=== PATIENT | female | born 1985 | race Caucasian/White ===

== ENCOUNTER → 2018-03-12 13:23 | Outpatient (CLI) | payer BC, SELFPAY ==
--- NOTE | 2018-03-12 13:27 | MM_ITS ---
MM Dig mamm BI DX w/CAD, US breast LT complete INDICATION: Palpable abnormality in the upper outer and upper inner aspect of the left breast ORDERING PHYSICIAN: Laura Shelley MD PATIENT AGE: 32 years COMPARISON: None TECHNIQUE: Standard images performed along spot compression views of the left breast and left breast ultrasound FINDINGS: There is dense fibroglandular tissue which decreases the sensitivity of mammography. On the left there are several areas of well-circumscribed decreased densities one in the upper outer aspect of the left breast measuring 2 cm and one just medial to this area at 1.8 cm. These are consistent with oil cysts or lipomas. The larger lesion may correspond to the palpable abnormality in the upper outer left breast. Asymmetric density is present in the medial and upper aspect of the left breast as well for which ultrasound was recommended. Left breast ultrasound: There is a 7 x 8 mm cyst at 12:00 and a 5 x 2 mm cyst at 2:00 near the nipple. A 5 x 5 mm cyst is present at 3:00 near the nipple. A 4 mm cyst is present at 8:00 near the nipple. At 11:00 there is a 1.8 x 1 cm nodule which is mostly cystic but with some low level echoes posteriorly. There is also suggestion of a thickened wall of this lesion. This may represent a complex cyst or a degenerated fibroadenoma. Ultrasound-guided aspiration suggested. IMPRESSION: Palpable abnormalities of the left breast are felt to represent oil cysts or lipomas in the upper outer aspect of the left breast. The palpable abnormality in the upper inner left breast represents a complex cystic lesion as described above. Ultrasound guided fine needle aspiration is suggested. This is mildly suspicious BI-RADS Category: 4 Suspicious Abnormality-Biopsy Considered RECOMMENDED FOLLOW-UP: BIO - BIOPSY RECOMMENDED (A letter has been sent to the patient regarding results of the study.)
== END ==
PROVIDERS: PCP Obstetrics & Gynecology; Visit Provider Obstetrics & Gynecology
DX: N63.20 Unspecified lump in the left breast, unspecified quadrant (principal)
CPT/HCPCS: 76641; 77066

== ENCOUNTER → 2018-04-01 09:56 | Outpatient (CLI) | payer BC, SELFPAY ==
--- NOTE | 2018-04-01 09:58 | US_ITS ---
FNA w guidance, US breast LT complete HISTORY: Complex cystic lesion of the left breast palpable abnormality at 11:00 ITS.REASON: * US Guided Bx Fine Needle Aspiration Lt Breast ORDERING PHYSICIAN: Laura Shelley MD PATIENT AGE: 33 years COMPARISON: 03/12/2018 Prebiopsy ultrasound: Prebiopsy ultrasound performed to ivone the area of needle placement. Residual cystic lesion is once again noted at 11:00 at 9 x 5 mm with a thick capsule. This cyst has slightly decreased in size compared to the previous exam. TECHNIQUE: Following obtaining informed consent, using aseptic technique and local anesthesia with buffered lidocaine, fine-needle aspiration was performed of the nodule of interest using sonographic guidance. One pass was made into the nodule with a 25-gauge needle. The cyst was completely aspirated. Less than 1 cc of cloudy fluid was aspirated Specimen was given to cytology. The patient tolerated the procedure well without evidence of immediate complications and left the ultrasound suite in stable condition. CYTOLOGY:Negative for malignant cells Postbiopsy mammogram: The nodular lesion in the upper inner aspect of the left breast is smaller compared to the previous study. There remains some asymmetry in the outer aspect of the left breast which is felt to be due to fibroglandular tissue as there are no sonographic abnormalities within this region. IMPRESSION: Successful sonographic guided cyst aspiration of left breast showing benign findings. Suggest 6 month mammogram to confirm stability of the asymmetric densities which may be related to fibroglandular tissue
--- NOTE | 2018-04-01 11:06 | MM_ITS ---
MM Dig mamm DX unilat LT CAD Ordering Physician: Laura Shelley MD Patient Age: 33 years Female COMPARISON: Bilateral mammogram February. Left breast ultrasound March 12, 2018 INDICATION: . Mammogram following left breast cyst aspiration of performed 04/01 TECHNIQUE: CC and MLO view compared to prior study. FINDINGS: No significant new findings. . On today's MLO view there seems to be some slight decrease density compared to previous MLO view from 03/12/2018. Following the aspiration of cyst at 11:00. Follow-up left mammogram 6-7 months suggested to confirm stability, particularly if palpable area persists. IMPRESSION: No new findings. If anything Perhaps slight density superior left breast following aspiration cyst at 11:00. Heterogeneous breast with scattered asymmetric areas of density . Suggest follow-up left mammogram 6 months follow-up particularlypalpable areas persist BI-RADS Category: 3 Probably Benign Finding Short Term Follow-up RECOMMENDED FOLLOW-UP: 6M 6 MONTH FOLLOW-UP A letter has been sent to the patient regarding results of the study.)
== END ==
PROVIDERS: Visit Provider Obstetrics & Gynecology
DX: N63.20 Unspecified lump in the left breast, unspecified quadrant (principal)
CPT/HCPCS: 10022; 76641; 77065

== ENCOUNTER → 2019-04-21 13:14 | Outpatient (CLI) | payer BC, SELFPAY ==
--- NOTE | 2019-04-21 13:15 | US_ITS ---
PROCEDURE: US TRANSVAGINAL CLINICAL INDICATION: DUB Dysfunctional uterine bleeding, frequent heavy painful periods COMPARISON: No exams were available for comparison FINDINGS: UTERUS: 9 x x 4 cm with a combined endometrial thickness of 6.6 mm LEFT OVARY: 3x2 cmx2.3 cm RIGHT OVARY: 5xx4 cm There are multiple nabothian cysts. No uterine mass evident.. There is a complex right ovarian cyst measuring 4 x 2.5 cm with an internal septation which appears slightly thickened. No cul-de-sac fluid evident. IMPRESSION: Complex 4 x 2.5 cm right ovarian cyst. Suggest short-term follow-up in 6-8 weeks to stability or resolution. Dictated by: Senthil Tinajero MD 04/21/2019 19:45 Electronically signed by Senthil Tinajero MD in [place] 04/21/2019 19:45
== END ==
PROVIDERS: Visit Provider Obstetrics & Gynecology
DX: N93.8 Other specified abnormal uterine and vaginal bleeding (principal)
CPT/HCPCS: 76830

== ENCOUNTER → 2021-05-24 15:09 | Outpatient (CLI) | payer BC, SELFPAY | PROVIDERS: Visit Provider Nurse Practitioner | DX: U07.1 COVID-19 (principal) | CPT/HCPCS: C9803; U0003; U0005 ==

== ENCOUNTER 2021-12-18 12:17 | Emergency (ER) | payer BC, SELFPAY ==
[2021-12-18 12:30] VITALS: BP 114/70; PULSE 91; RESP 17; TEMP 36.8; O2SAT 98; BMI 21.9
--- NOTE | 2021-12-18 12:47 | HMH.EDUTC ---
[facility] Disposition Clinical Impression: Rash and nonspecific skin eruption Disposition: Home, Self-Care Condition on Discharge: Good Instructions: DI for Rash, Prednisone, Diphenhydramine Additional Instructions: Over the counter benadryl may help with itching and rash Start oral steriods tomorrow Oatmeal bathes may help with itching and soothing the skin from the rash Follow up with your Family Doctor if no improvement or any worsening of symptoms Return if needed Straight to ER if any life threatening symptoms Look around and make sure that nothing has changed Prescriptions: predniSONE [Prednisone 10mg Tab Dose-Pack] 10 mg PO UD DOSE PK 6 Days #21 tab Transmission Status: Received by [facility] Referrals: Mindy Lux APRN [Primary Care Provider] - As needed Forms: Work/School Release Medical Decision Making - Eamon Inquiry Pt receiving controlled substance: No Eamon was queried for this patient: No Vital Signs: 12/18/21 12:30 12/18/21 13:02 Temperature 98.2 F 98.2 F Temperature Source Oral Pulse Rate 91 H Pulse Rate [Right Brachial] 91 H Respiratory Rate 17 17 Blood Pressure 114/70 Blood Pressure [Right Arm] 114/70 Blood Pressure Mean [Right Arm] 84 Blood Pressure Source [Right Arm] Automatic Cuff Blood Pressure Position [Right Arm] Sitting 02 Sat by Pulse Oximetry 98 Oxygen Delivery Method Room Air Orders (Tests/Meds): ED MEDICATIONS Discontinued Medications Generic Name Dose Route Start Last Admin Trade Name Humberto PRN Reason Stop Dose Admin Diphenhydramine HCl 25 mg 12/18/21 12:50 12/18/21 13:00 Diphenhydramine 50mg/Ml Vial IM 12/18/21 12:51 25 mg ONCE ONE Administration Famotidine 20 mg 12/18/21 12:50 12/18/21 13:01 Famotidine 20mg Tablet PO 12/18/21 12:51 20 mg ONCE ONE Administration Loratadine 10 mg 12/18/21 12:51 12/18/21 13:01 Loratadine 10mg Tablet PO 12/18/21 12:52 10 mg ONCE ONE Administration Methylprednisolone Sodium Succinate 125 mg 12/18/21 12:50 12/18/21 13:00 Methylprednisolone Sod Succ 125mg Vial IM 12/18/21 12:51 125 mg ONCE ONE Administration Medical Decision Narrative: Rash appears slightly improved after medication will DC home on oral steriods and have patient follow up with PCP if no improvement [facility] HPI - General Stated complaint: rash/allergic reaction Time Seen by Provider: 12/18/21 12:40 Mode of Arrival: Ambulatory Source of Information: Patient Limitations: No Limitations Description of Symptoms (Recalled from Triage Doc. by RN): PATIENT C/O ITCHY RASH ALL OVER BODY SINCE SUNDAY HEENT Symptoms (Recalled from RN notes): No Resp Symptoms (Recalled from RN notes): No Skin Symptoms (Recalled from RN notes): Yes MS Symptoms (Recalled from RN notes): No Functional Status (Recalled from RN notes): WNL - History of Present Illness Provider Complaint: Patient states that she has had rash all over her body since Sunday States that she is not sure if she may be having a reaction to something or not States that the placed on her legs she thought was bits at first but now she feels like she is having hives in her head and itching all over so she came in - Related Data Previous Rx's Medication Instructions Recorded predniSONE [Prednisone 10mg Tab 10 mg PO UD DOSE PK 6 Days #21 tab 12/18/21 Dose-Pack] Allergies Allergy/AdvReac Type Severity Reaction Status Date / Time No Known Allergies Allergy Verified 05/29/19 11:02 - Worker's Comp Is this a Worker's Comp case?: No [facility] History - Hepatitis A Screen Attestation statement:: This patient has been screened for Hepatitis A risk factors. I have reviewed the patient's past medical history: Yes Medical History: Denies:: Anxiety, Cancer, Depression, Diabetes Mellitus Type 1, Diabetes Mellitus Type 2, Hyperlipidemia, Hypertension, Internal Pacemaker, Migraine, MRSA, Seizures Other Medical History: Reports: Hypothyroid
[2021-12-18 13:02] VITALS: BP 114/70; PULSE 91; RESP 17; TEMP 36.8; O2SAT 98
== END 2021-12-18 13:21 | disposition home or self-care (01) ==
PROVIDERS: Emergency Provider Nurse Practitioner; PCP Nurse Practitioner
DX: R21 Rash and other nonspecific skin eruption (principal)
CPT/HCPCS: 96372; 99212; G0463

== ENCOUNTER → 2022-11-15 16:00 | Outpatient (CLI) | payer BC, SELFPAY ==
[2022-11-15 20:01] LABS: Basophils % 0.4 % (0.1-2.0); Eosinophils # 0.2 K/mm3 (0.0-0.4); Eosinophils % 2.7 % (0.1-12.0); Hematocrit 42.6 % (37.0-47.0); Hemoglobin 14.2 g/dL (12.2-16.2); Lymphocytes # 1.8 K/mm3 (0.7-4.5); Mean Corpuscular HGB Conc 33.2 g/dL (31.8-35.4); Mean Corpuscular Hemoglobin 30.5 pg (27.0-31.2); Mean Corpuscular Volume 91.7 fl (81-99); Mean Platelet Volume 11.5 fl (7.4-10.4); Monocytes # 0.3 K/mm3 (0.1-1.0); Monocytes % 4.8 % (1.7-9.3); Neutrophils # 3.7 K/mm3 (1.8-7.8); Platelet Count 159 K/mm3 (142-424); Red Blood Count 4.65 M/mm3 (4.20-5.40); Red Cell Distribution Width 13.2 % (11.5-17.5); White Blood Count 5.9 K/mm3 (4.8-10.8)
[2022-11-15 20:09] LABS: Alanine Aminotransferase 19 U/L (12-78); Albumin Level 4.4 g/dl (3.5-5.0); Albumin/Globulin Ratio 1.6 (1.1-1.8); Alkaline Phosphatase 78 U/L (38-126); Anion Gap 12.6 mEq/L (5-15); Aspartate Amino Transferase 24 U/L (14-36); Bilirubin,Total 0.4 mg/dl (0.2-1.3); Blood Urea Nitrogen 11 mg/dl (7-17); Calcium 9.1 mg/dl (8.4-10.2); Carbon Dioxide 28 mmol/L (22.0-30.0); Chloride 103 mmol/L (98-107); Cholesterol 145 mg/dl (140-200); Estimated Glomerular Filt Rate 111 ml/min (>60); GFR (African American) 135 ML/MIN (>60); Globulin 2.8 g/dL (1.3-3.2); Glucose 83 mg/dl (74-100); HDL Cholesterol 74 mg/dl (40-60); Potassium 3.6 mmoL/L (3.5-5.1); Sodium 140 mmol/L (136-145); Total Protein,Serum 7.2 g/dl (6.3-8.2); Triglycerides 76 mg/dl (30-150); VLDL Cholesterol 15 mg/dL (0-40)
[2022-11-15 20:20] LABS: Direct LDL Cholesterol 63.56 mg/dL (100-129)
[2022-11-15 20:40] LABS: Thyroid Stimulating Hormone 0.92 uIU/mL (0.465-4.68)
[2022-11-15 21:02] LABS: Creatinine,Urine Random 45 mg/dL (Not Estab.); Hemoglobin A1C 4.8 % (4.0-6.0); Microalbumin < 6.000 mg/L (0-16.7)
[2022-11-17 09:16] LABS: Estradiol 75.2 pg/mL (.)
[2022-11-17 10:37] LABS: FSH 10.7 mIU/mL (.)
[2022-11-23 20:09] LABS: Estrogen 126 pg/mL (.)
== END ==
PROVIDERS: PCP Nurse Practitioner; Visit Provider Nurse Practitioner
DX: I10 Essential (primary) hypertension (principal); N95.1 Menopausal and female climacteric states
CPT/HCPCS: 80053; 80061; 82043; 82570; 82670; 82672; 83001; 83002; 83036; 84443; 85025

== ENCOUNTER → 2022-11-16 14:02 | Outpatient (CLI) | payer BC, SELFPAY ==
--- NOTE | 2022-11-16 14:11 | ECG_ITS ---
APPROVED REPORT Exam: Resting ECG HR:69 bpm ECG Measurements Heart Rate 69 AXES HI 150 P 59 QRSd 81 QRS 73 QT 376 T 73 QTc 395 Conclusion SINUS RHYTHM NORMAL ECG UNCONFIRMED REPORT Electronically signed by : Nacho Franco MD 11/16/2022 20:06:17
== END ==
LOC: RT 14:03
PROVIDERS: PCP Nurse Practitioner; Visit Provider Nurse Practitioner
DX: I10 Essential (primary) hypertension (principal)
CPT/HCPCS: 93005

== ENCOUNTER → 2022-12-07 10:34 | Outpatient (CLI) | payer BC, SELFPAY ==
[2022-12-06 19:34] LABS: Alanine Aminotransferase 23 U/L (12-78); Albumin Level 4.7 g/dl (3.5-5.0); Albumin/Globulin Ratio 1.5 (1.1-1.8); Alkaline Phosphatase 94 U/L (38-126); Anion Gap 9.8 mEq/L (5-15); Aspartate Amino Transferase 30 U/L (14-36); Bilirubin,Total 0.5 mg/dl (0.2-1.3); Blood Urea Nitrogen 16 mg/dl (7-17); Calcium 9.9 mg/dl (8.4-10.2); Carbon Dioxide 34 mmol/L (22.0-30.0); Chloride 97 mmol/L (98-107); Estimated Glomerular Filt Rate 93 ml/min (>60); GFR (African American) 113 ML/MIN (>60); Globulin 3.2 g/dL (1.3-3.2); Glucose 91 mg/dl (74-100); Phosphorous 3.8 mg/dl (2.5-4.5); Potassium 3.8 mmoL/L (3.5-5.1); Sodium 137 mmol/L (136-145); Total Protein,Serum 7.9 g/dl (6.3-8.2)
[2022-12-06 20:24] LABS: Vitamin B12 526 pg/mL (239-931)
[2022-12-08 16:08] LABS: Anti-Centromere B Antibodies <0.2 AI (0.0-0.9); Anti-DNA (DS) Ab Qn 2 IU/mL (0-9); Anti-Jo-1 <0.2 AI (0.0-0.9); Anti-Smith Antibody <0.2 AI (0.0-0.9); Antichromatin Antibodies <0.2 AI (0.0-0.9); Antiscleroderma-70 Antibodies <0.2 AI (0.0-0.9); RNP Antibodies 0.3 AI (0.0-0.9); Sjogren's Anti-SS-A <0.2 AI (0.0-0.9); Sjogren's Anti-SS-B <0.2 AI (0.0-0.9)
== END ==
PROVIDERS: PCP Nurse Practitioner; Visit Provider Nurse Practitioner
DX: R00.2 Palpitations (principal); I10 Essential (primary) hypertension; R20.2 Paresthesia of skin
CPT/HCPCS: 80053; 82607; 83735; 84100; 86225; 86235; 93225; 93226

== ENCOUNTER → 2022-12-13 13:33 | Outpatient (CLI) | payer BC, SELFPAY ==
[2022-12-13 20:02] LABS: Basophils % 0.4 % (0.1-2.0); Eosinophils # 0.1 K/mm3 (0.0-0.4); Eosinophils % 1.3 % (0.1-12.0); Hematocrit 41.5 % (37.0-47.0); Hemoglobin 13.5 g/dL (12.2-16.2); Lymphocytes # 1.5 K/mm3 (0.7-4.5); Lymphocytes % 19.8 % (10-50); Mean Corpuscular HGB Conc 32.6 g/dL (31.8-35.4); Mean Corpuscular Hemoglobin 30.6 pg (27.0-31.2); Mean Corpuscular Volume 93.7 fl (81-99); Monocytes # 0.3 K/mm3 (0.1-1.0); Neutrophils # 5.6 K/mm3 (1.8-7.8); Neutrophils % 74.5 % (37.0-80.0); Platelet Count 167 K/mm3 (142-424); Red Blood Count 4.43 M/mm3 (4.20-5.40); Red Cell Distribution Width 12.9 % (11.5-17.5); White Blood Count 7.5 K/mm3 (4.8-10.8)
[2022-12-20 08:05] LABS: Lyme B. burgdorferi PCR Blood Negative (Negative)
== END ==
PROVIDERS: PCP Nurse Practitioner; Visit Provider Nurse Practitioner
DX: S70.362A Insect bite (nonvenomous), left thigh, initial encounter (principal); W57.XXXA Bitten or stung by nonvenomous insect and other nonvenomous arthropods, initial encounter
CPT/HCPCS: 85025; 87476

== ENCOUNTER 2022-12-14 12:08 | Emergency (ER) | payer BC, SELFPAY ==
[2022-12-14 12:08] VITALS: BP 125/88; PULSE 100; RESP 18; TEMP 36.6; O2SAT 100; BMI 21.2
--- NOTE | 2022-12-14 12:08 | ECG_ITS ---
APPROVED REPORT Exam: Resting ECG HR:94 bpm ECG Measurements Heart Rate 94 AXES KS 154 P 78 QRSd 83 QRS 49 QT 341 T 56 QTc 393 Conclusion SINUS RHYTHM NORMAL ECG UNCONFIRMED REPORT Electronically signed by : Nacho Franco MD 12/14/2022 21:23:21
--- NOTE | 2022-12-14 12:14 | PC.NURSE ---
DR CHIANG AT BEDSIDE
--- NOTE | 2022-12-14 12:26 | CT_ITS ---
FINAL REPORT TECHNIQUE: Thin section axial images were obtained from skull base to vertex without contrast. Coronal reconstruction images were obtained from the axial data. Exam was performed using dose reduction technique. CLINICAL HISTORY: L hand spasm FINDINGS: There is no mass effect or midline shift. There is no hydrocephalus. There is no intracranial hemorrhage. The posterior fossa is without acute abnormality. The basilar cisterns are preserved. The soft tissues are without acute abnormality. No acute osseous abnormality is identified. IMPRESSION: No acute intracranial abnormality. Reviewed, Interpreted and Dictated by Wanda Dowling MD Transcribed by Es Díaz Authenticated and [facility]
--- NOTE | 2022-12-14 12:26 | CT_ITS ---
FINAL REPORT TECHNIQUE: Thin section axial images are obtained through the brain after intravenous contrast injection. Multiplanar reconstructions were obtained from the axial data. Exam was performed using dose reduction technique per the ALARA principal. CLINICAL HISTORY: L hand spasm FINDINGS: The intracerebral portions of the carotid arteries are patent. The anterior and middle cerebral arteries are patent. The basilar artery is patent. The vertebral arteries are patent. The posterior cerebral arteries arise from the basilar artery. [place] is intact. There is no significant stenosis, aneurysm, or AVM. IMPRESSION: Unremarkable CT angiogram of the intracerebral vasculature. Reviewed, Interpreted and Dictated by Wanda Dowling MD Transcribed by Es Díaz Authenticated and [facility]
--- NOTE | 2022-12-14 12:26 | CT_ITS ---
FINAL REPORT TECHNIQUE: Thin section axial CT with IV contrast supplemented with multiplanar reconstruction under CT angiogram protocol. This study was performed with techniques to keep radiation doses as low as reasonably achievable (ALARA). Individualized dose reduction techniques using automated exposure control or adjustment of mA and/or kV according to the patient''s size were employed. NASCET criteria was utilized during interpretation. CLINICAL HISTORY: L hand spasm FINDINGS: Aortic arch: Arch shows no significant narrowing. Great vessel origins are widely patent. Right carotid: No significant stenosis is seen of the cervical common or internal carotid artery. Left carotid: No significant stenosis is seen of the cervical common or internal carotid artery. Vertebral: The vertebral arteries are normal. No significant stenosis is present. IMPRESSION: No significant stenosis. Reviewed, Interpreted and Dictated by Wanda Dowling MD Transcribed by Es Díaz Authenticated and [facility]
--- NOTE | 2022-12-14 12:28 | HMH.EDGENADL ---
Discharge Plan Disposition Patient Disposition: Home, Self-Care Chief Complaint: Weakness Prescriptions Prescriptions: No Action hydrochlorothiazide 25 mg tablet 12.5 mg PO DAILY Qty: 30 2RF doxycycline hyclate 100 mg tablet 100 mg PO BID Qty: 20 0RF Referrals Follow up/Referrals: Provider,Referral, [Referring] - See instructions Activity Restrictions/Add. Instructions Additional Instructions/Restrictions: At this time is felt you are safe to be discharged home. If new or worsening symptoms please do not hesitate to return the emergency department. Please continue to follow-up on outpatient basis for continued evaluation of your muscle cramps and metabolic alkalosis. Clinical Impressions Clinical Impression: Muscle spasm, Alkalosis, metabolic Discharge ED Provider: Sarkis Gomez General Adult HPI General Chief complaint: Weakness Stated complaint: stroke like symptoms Time Seen by Provider: 12/14/22 12:13 Mode of Arrival: Ambulatory Source of Information: Patient Limitations: No Limitations Description of Symptoms (Recalled from ER Triage Doc. by RN): Presents to ED with complaints of left arm numbness/drawing x 3 hours. PAtient further reports she has had similiar episodes for the past year but it has never lasted this long. Patient also reports her heart started racing this morning . Denies cardiac hx. Patient states she was recently placed on doxycycline yesterday and is currently being worked up for Lyme disease. History of Present Illness HPI narrative: Patient is a 37-year-old female with past medical history of left upper extremity hand spasms currently under investigation who presented to the emergency department for evaluation of left upper extremity spasm. History is obtained by patient at bedside. Originally this first occurred after , left hand becomes painful and contracted with spontaneous resolution. This is happened 2-3 times over the last year. This morning she was doing nothing in particular when her left hand began to spasm and due to its refractory nature presents here for continued evaluation. Subjective paresthesias over her hand. No difficulty with speech, no lower extremity weakness, no gait changes, no headache, no vision changes. Patient is being worked up for Lyme disease and is currently on doxycycline. No other acute complaints at this time. Related Data Previous Rx's Medication Instructions Recorded hydrochlorothiazide 25 mg tablet 12.5 mg PO DAILY #30 tabs 12/06/22 doxycycline hyclate 100 mg tablet 100 mg PO BID #20 tabs 12/13/22 Allergies Allergy/AdvReac Type Severity Reaction Status Date / Time No Known Allergies Allergy Verified 12/13/22 12:58 [facility] Disclaimer: The information contained in this section may have been updated after the patient was seen, as this information can be updated by other users. Medical History (Updated 12/14/22 @ 15:21 by Sarkis Gomez MD) Essential hypertension Palpitations Paresthesias in left hand Perimenopausal symptoms Tick bite of left thigh Social History Smoking Status: Current every day smoker tobacco type: cigarettes packs per day: 1 alcohol intake: never substance use type: denies use current occupational status: other Travel in the last 8 weeks: None household members: family housing: house current occupation: hospice caffeine: No ROS Obtained: Yes Systems reviewed as appropriate & no additional complaints except as documented Physical Exam General General appearance: alert and in no apparent distress Head Head exam: atraumatic and normocephalic Eye Eye exam: Present PERRL and EOMI ENT ENT exam: Present mucous membranes moist Neck Neck exam: Present normal inspection Chest Chest inspection: Present normal inspection and symmetric chest wall rise Respiratory Respiratory exam: Present normal
[2022-12-14 12:30] VITALS: BP 106/68; PULSE 81; RESP 18; O2SAT 99
[2022-12-14 12:40] LABS: Alanine Aminotransferase 24 U/L (12-78); Albumin Level 4.5 g/dl (3.5-5.0); Albumin/Globulin Ratio 1.4 (1.1-1.8); Alkaline Phosphatase 85 U/L (38-126); Anion Gap 9.4 mEq/L (5-15); Aspartate Amino Transferase 35 U/L (14-36); Bilirubin,Total 0.5 mg/dl (0.2-1.3); Blood Urea Nitrogen 13 mg/dl (7-17); Calcium 9.4 mg/dl (8.4-10.2); Carbon Dioxide 31 mmol/L (22.0-30.0); Chloride 102 mmol/L (98-107); Creatinine Clearance Estimated 96 mL/min (50-200); Estimated Glomerular Filt Rate 93 ml/min (>60); GFR (African American) 113 ML/MIN (>60); Globulin 3.2 g/dL (1.3-3.2); Glucose 94 mg/dl (74-100); Potassium 3.4 mmoL/L (3.5-5.1); Sodium 139 mmol/L (136-145); Total Protein,Serum 7.7 g/dl (6.3-8.2)
--- NOTE | 2022-12-14 12:42 | PC.NURSE ---
Rounded on patient; nothing needed at this time. Call epps within reach
[2022-12-14 12:48] LABS: VBG HCO3 26.9 mmol/L (23-30); VBG Oxygen Saturation 96.8 % (50-70); VBG PCO2 39.2 mmol/L (35-51); VBG PH 7.45 mmol/L (7.31-7.41); VBG Total CO2 28.1 mmol/L (23-27)
--- NOTE | 2022-12-14 12:56 | PC.NURSE ---
PT TO CT
--- NOTE | 2022-12-14 12:57 | PC.NURSE ---
rounded on patient, visitors at bedside, patient going to radiology for images
--- NOTE | 2022-12-14 13:09 | PC.NURSE ---
RETURNED FROM CT
[2022-12-14 13:46] LABS: HCG Qualitative, Serum Negative (Negative)
--- NOTE | 2022-12-14 14:03 | PC.NURSE ---
Patient also updated on plan of care. Nothing else needed at this time
--- NOTE | 2022-12-14 14:03 | PC.NURSE ---
Rounded on patient; assisted to the bathroom.
[2022-12-14 15:07] LABS: Hematocrit 42.5 % (37.0-47.0); Hemoglobin 14.6 g/dL (12.2-16.2); Mean Corpuscular HGB Conc 34.4 g/dL (31.8-35.4); Mean Corpuscular Hemoglobin 30.9 pg (27.0-31.2); Mean Platelet Volume 12.5 fl (7.4-10.4); Neutrophils % 78.9 % (37.0-80.0); Platelet Count 185 K/mm3 (142-424); Red Blood Count 4.72 M/mm3 (4.20-5.40); Red Cell Distribution Width 12.3 % (11.5-17.5)
[2022-12-14 15:08] LABS: Basophils % 0.3 % (0.1-2.0); Eosinophils % 0.3 % (0.1-12.0); Lymphocytes # 1.5 K/mm3 (0.7-4.5); Lymphocytes % 15.4 % (10-50); Monocytes # 0.5 K/mm3 (0.1-1.0); Neutrophils # 7.5 K/mm3 (1.8-7.8)
[2022-12-14 15:09] LABS: White Blood Count 9.5 K/mm3 (4.8-10.8)
[2022-12-14 15:49] VITALS: BP 106/68; PULSE 81; RESP 18; TEMP 36.6; O2SAT 99
== END 2022-12-14 15:51 | disposition home or self-care (01) ==
PROVIDERS: Emergency Provider Emergency Medicine; PCP Nurse Practitioner
DX: E87.3 Alkalosis (principal); R25.2 Cramp and spasm; R20.0 Anesthesia of skin; I10 Essential (primary) hypertension; F17.210 Nicotine dependence, cigarettes, uncomplicated
CPT/HCPCS: 70450; 70496; 70498; 80053; 82803; 84703; 85025; 93005; 99285; Q9967

== ENCOUNTER 2023-07-24 13:47 | Outpatient (CLI) | payer BC, SELFPAY ==
--- NOTE | 2023-07-24 13:48 | MM_ITS ---
PROCEDURE INFORMATION: Exam: MG Bilateral Screening 3D Mammography Exam date and time: 07/24/2023 1:48 PM Age: 38 years old Clinical indication: Screening mammogram TECHNIQUE: Imaging protocol: Bilateral Screening tomosynthesis and 2D mammography including computer-aided detection (CAD) when performed. COMPARISON: 1. MG DXLT MM Dig mamm DX unilat LT CAD 04/01/2018 11:17 AM 2. MG DXBI MM Dig mamm BI DX w/CAD 03/12/2018 2:04 PM 3. BREASTLT US breast LT complete 03/12/2018 2:18 PM FINDINGS: MAMMOGRAPHY: Breast composition: The breast is heterogeneously dense, which may obscure small masses. Mass: None. Architectural distortion: No new or suspicious architectural distortion. Calcifications: No new or suspicious calcifications are present Asymmetric density: No new or suspicious asymmetric density is present Skin thickening: None. Axillary adenopathy: None. IMPRESSION: No mammographic evidence of malignancy. Recommend annual screening mammography unless otherwise clinically indicated. ASSESSMENT: BI-RADS category 1: Negative
== END 2023-07-24 23:59 ==
LOC: RAD 13:48
PROVIDERS: PCP Nurse Practitioner; Visit Provider Nurse Practitioner
DX: Z12.31 Encounter for screening mammogram for malignant neoplasm of breast (principal)
CPT/HCPCS: 77063; 77067

== ENCOUNTER 2023-09-06 18:00 | Outpatient (CLI) | payer BC, SELFPAY | END 2023-09-06 23:59 | LOC: LAB.DROPOF 09-07 10:17 | PROVIDERS: PCP Nurse Practitioner; Visit Provider Nurse Practitioner | DX: L02.413 Cutaneous abscess of right upper limb (principal); L03.113 Cellulitis of right upper limb; B95.7 Other staphylococcus as the cause of diseases classified elsewhere | CPT/HCPCS: 87070; 87205 ==

== ENCOUNTER 2024-06-24 13:29 | Outpatient (CLI) | payer BC, SELFPAY ==
[2024-06-24 18:17] LABS: Basophils % 0.3 % (0.1-2.0); Eosinophils # 0.1 K/mm3 (0.0-0.4); Eosinophils % 1.4 % (0.1-12.0); Lymphocytes # 1.4 K/mm3 (0.7-4.5); Lymphocytes % 22.3 % (10-50); Mean Corpuscular HGB Conc 34.1 g/dL (31.8-35.4); Mean Corpuscular Hemoglobin 31.4 pg (27.0-31.2); Mean Corpuscular Volume 91.9 fl (81-99); Mean Platelet Volume 12.1 fl (7.4-10.4); Monocytes # 0.3 K/mm3 (0.1-1.0); Monocytes % 5.2 % (1.7-9.3); Neutrophils # 4.5 K/mm3 (1.8-7.8); Neutrophils % 70.6 % (37.0-80.0); Platelet Count 141 K/mm3 (142-424); Red Blood Count 4.46 M/mm3 (4.20-5.40); Red Cell Distribution Width 12.3 % (11.5-17.5); White Blood Count 6.3 K/mm3 (4.8-10.8)
[2024-06-24 18:53] LABS: Alanine Aminotransferase 18 U/L (12-78); Albumin Level 4.3 g/dl (3.5-5.0); Albumin/Globulin Ratio 1.8 (1.1-1.8); Alkaline Phosphatase 63 U/L (38-126); Anion Gap 15.5 mEq/L (5-15); Aspartate Amino Transferase 25 U/L (14-36); Bilirubin,Total 0.3 mg/dl (0.2-1.3); Blood Urea Nitrogen 12 mg/dl (7-17); Calcium 9.2 mg/dl (8.4-10.2); Carbon Dioxide 22 mmol/L (22.0-30.0); Chloride 104 mmol/L (98-107); Estimated Glomerular Filt Rate 136 ml/min (>60); GFR (African American) 165 ML/MIN (>60); Globulin 2.4 g/dL (1.3-3.2); Glucose 64 mg/dl (74-100); Potassium 3.5 mmoL/L (3.5-5.1); Sodium 138 mmol/L (136-145); Total Protein,Serum 6.7 g/dl (6.3-8.2); Uric Acid 2.4 mg/dl (2.5-6.2)
[2024-06-24 19:03] LABS: Erythrocyte Sedimentation Rate 8 mm/hr (0-20)
[2024-06-24 19:10] LABS: C-Reactive Protein 0.3 mg/L (0-4)
[2024-06-26 08:14] LABS: RA Latex Turbid. <10.0 IU/mL (<14.0)
[2024-06-30 14:22] LABS: Antinuclear Antibodies, IFA POSITIVE
== END 2024-06-24 23:59 | disposition home or self-care (01) ==
LOC: LAB.DROPOF 06-25 13:29
PROVIDERS: PCP Nurse Practitioner; Visit Provider Nurse Practitioner
DX: M25.561 Pain in right knee (principal)
CPT/HCPCS: 80053; 84550; 85025; 85651; 86038; 86140; 86431

== ENCOUNTER 2024-06-25 09:57 | Outpatient (CLI) | payer BC, SELFPAY ==
--- NOTE | 2024-06-25 10:02 | XR_ITS ---
FINAL REPORT CLINICAL HISTORY: right knee pain, hurting since April w/ no improvement no injury FINDINGS: RIGHT KNEE Three views were obtained. There is no fracture or dislocation. The joint spaces appear normal. No soft tissue abnormality is identified. IMPRESSION: No acute process. Reviewed, Interpreted and Dictated by Juan Carlos Chavez MD Transcribed by Es Díaz Authenticated and [facility]
== END 2024-06-25 23:59 | disposition home or self-care (01) ==
LOC: RAD 09:59
PROVIDERS: PCP Nurse Practitioner; Visit Provider Orthopaedic Surgery
DX: M25.561 Pain in right knee (principal)
CPT/HCPCS: 73562

== ENCOUNTER 2025-01-19 11:55 | Outpatient (CLI) | payer BC, SELFPAY ==
[2025-01-19 14:53] LABS: Hematocrit 43.1 % (37.0-47.0); Hemoglobin 14.5 g/dL (12.2-16.2); Immature Granulocytes % 0.2 %; Mean Corpuscular HGB Conc 33.6 g/dL (31.8-35.4); Mean Corpuscular Hemoglobin 31.7 pg (27.0-31.2); Mean Corpuscular Volume 94.1 fl (81-99); Nucleated Red Blood Cells % 0 %; Platelet Count 148 K/mm3 (142-424); Red Blood Count 4.58 M/mm3 (4.20-5.40); Red Cell Distribution Width-SD 43.7 fL; White Blood Count 5.5 K/mm3 (4.8-10.8)
[2025-01-19 15:57] LABS: Alanine Aminotransferase 15 U/L (12-78); Albumin Level 4.5 g/dl (3.5-5.0); Albumin/Globulin Ratio 1.7 (1.1-1.8); Alkaline Phosphatase 72 U/L (38-126); Anion Gap 13.3 mEq/L (5-15); Aspartate Amino Transferase 24 U/L (14-36); Bilirubin,Total 0.4 mg/dl (0.2-1.3); Blood Urea Nitrogen 13 mg/dl (7-17); Calcium 9.2 mg/dl (8.4-10.2); Carbon Dioxide 25 mmol/L (22.0-30.0); Chloride 107 mmol/L (98-107); Creatinine,Serum 0.60 mg/dl (0.52-1.04); Estimated Glomerular Filt Rate 110 ml/min (>60); GFR (African American) 133 ML/MIN (>60); Globulin 2.6 g/dL (1.3-3.2); Glucose 73 mg/dl (74-100); Potassium 4.3 mmoL/L (3.5-5.1); Sodium 141 mmol/L (136-145); Total Protein,Serum 7.1 g/dl (6.3-8.2)
[2025-01-19 16:25] LABS: Thyroid Stimulating Hormone 1.44 uIU/mL (0.465-4.68)
[2025-01-19 16:43] LABS: Vitamin B12 377 pg/mL (239-931)
[2025-01-19 18:04] LABS: Hepatitis C Ab Qual. W/ RFX NEGATIVE (Negative)
[2025-01-20 07:10] LABS: Hepatitis B Surface Antigen Negative (Negative)
== END 2025-01-19 23:59 | disposition home or self-care (01) ==
LOC: LAB.DROPOF 01-21 12:33
PROVIDERS: PCP Nurse Practitioner; Visit Provider Nurse Practitioner
DX: Z11.59 Encounter for screening for other viral diseases (principal); R76.8 Other specified abnormal immunological findings in serum; F41.8 Other specified anxiety disorders
CPT/HCPCS: 80053; 82607; 84443; 85025; 86225; 86235; 86803; 87340; 87389